=== PATIENT | male | born 1950 | race Caucasian/White ===

== ENCOUNTER 2017-09-27 00:19 | Inpatient (IN) | payer MEDICARE, SELFPAY ==
[2017-09-27] MEDS ORDERED: Atropine Sulfate 1 mg/10 ml Syringe ONE (00:35)
[2017-09-27 00:39] LABS: #Basophils 0.1 thou/uL (0.0-0.2); #Eosinphils 0.2 thou/uL (0.0-0.7); #Lymphocytes 1.7 thou/uL (1.20-3.40); #Monocytes 0.5 thou/uL (0.11-0.59); #Neutrophils 6.6 thou/uL (1.40-6.50); %Basophils 0.7 % (0.0-1.0); %Eosinophils 1.8 % (0.0-10.0); %Lymphocytes 18.5 % (21.0-51.0); %Neutrophils 72.9 % (42.0-75.0); Hemoglobin 13.9 g/dL (14.0-18.0); Mean Corpuscular HGB CONC 33.6 g/dL (32.0-36.0); Mean Corpuscular Hemoglobin 33.4 pg (27.0-31.0); Mean Corpuscular Volume 99.5 fl (80.0-94.0); Mean Platelet Volume 6.7 fL (7.4-10.4); Platelet Count 255 thou/uL (130-400); RBC Distribution Width 11.7 % (11.5-14.5); Red Blood Cell (RBC) Count 4.17 mill/uL (4.70-6.10); White Blood Cell (WBC) Count 9.1 thou/uL (4.8-10.8)
[2017-09-27 00:41] LABS: INR-International Normal Ratio 1.1; PTT 29.1 SEC (22.9-36.1); Prothrombin Time 14.8 SEC (12.0-14.7)
[2017-09-27 00:54] LABS: ALT (SGPT) 23 U/L (8-55); AST (SGOT) 33 U/L (5-34); Albumin 4.4 g/dL (3.4-4.8); Alkaline Phosphatase 66 U/L (40-150); Anion Gap 14 mmol/L (10-20); BUN (Urea Nitrogen) 20 mg/dL (8.4-25.7); Bilirubin, Total 0.6 mg/dL (0.2-1.2); CK (CPK) 523 U/L (30-200); Calc. Creatinine Clearance 0 mL/min (70-130); Calcium 10.3 mg/dL (7.8-10.44); Carbon Dioxide 25 mmol/L (23-31); Chloride 101 mmol/L (98-107); Estimated GFR-MDRD Greater than 90; Globulin 2.8 g/dL (2.4-3.5); Glucose 118 mg/dL (80-115); Lipase 26 U/L (8-78); Protein, Total 7.2 g/dL (5.8-8.1); Sodium 136 mmol/L (136-145)
[2017-09-27 00:57] LABS: Troponin I Less than 0.010 ng/mL (< 0.028)
[2017-09-27 01:03] LABS: CKMB 11.8 ng/mL (0-6.6)
[2017-09-27] MEDS ORDERED: Lidocaine 2% Jelly 5 ML TUBE ONE (01:12)
[2017-09-27] MEDS ORDERED: Benzocaine 20% Spray 60 ML CAN ONE (01:12)
[2017-09-27] MEDS ORDERED: Oxymetazoline HCl 0.05% ( 15 ML ) ONE (01:12)
[2017-09-27] MEDS ORDERED: Lorazepam 2 MG/ML VIAL ONE (02:25)
[2017-09-27] MEDS: Sodium Chloride 0.9% 1,000 ML IV SCH ×2 (04:36→10:42)
[2017-09-27 07:04] VITALS: BMI 18.7
[2017-09-27 09:49] LABS: #Lymphocytes 0.8 thou/uL (1.20-3.40); #Monocytes 0.6 thou/uL (0.11-0.59); #Neutrophils 8.4 thou/uL (1.40-6.50); %Basophils 0.3 % (0.0-1.0); %Eosinophils 0.2 % (0.0-10.0); %Monocytes 5.9 % (0.0-10.0); %Neutrophils 85.5 % (42.0-75.0); Hemoglobin 14.3 g/dL (14.0-18.0); Mean Corpuscular HGB CONC 33.4 g/dL (32.0-36.0); Mean Corpuscular Hemoglobin 33.3 pg (27.0-31.0); Mean Corpuscular Volume 99.5 fl (80.0-94.0); Mean Platelet Volume 6.7 fL (7.4-10.4); Platelet Count 264 thou/uL (130-400); RBC Distribution Width 11.5 % (11.5-14.5); Red Blood Cell (RBC) Count 4.31 mill/uL (4.70-6.10); White Blood Cell (WBC) Count 9.8 thou/uL (4.8-10.8)
--- NOTE | 2017-09-27 09:54 | RAD ---
ABDOMEN 1 VIEW: Date: 09/27/17 HISTORY: Evaluate for NG tube placement. COMPARISON: Exam from 2013. FINDINGS: The enteric tube tip is at the gastric body. The side port is just beyond the GE junction. No pneumot horax. No focal air space consolidation. IMPRESSION: Satisfactory position of enteric tube. POS: [facility]
[2017-09-27 10:09] LABS: BUN (Urea Nitrogen) 14 mg/dL (8.4-25.7); Calc. Creatinine Clearance 101 mL/min (70-130); Calcium 9.4 mg/dL (7.8-10.44); Carbon Dioxide 23 mmol/L (23-31); Estimated GFR-MDRD Greater than 90; Glucose 112 mg/dL (80-115)
[2017-09-27 10:19] LABS: Anion Gap 13 mmol/L (10-20); Chloride 105 mmol/L (98-107); Potassium 3.5 mmol/L (3.5-5.1); Sodium 137 mmol/L (136-145)
--- NOTE | 2017-09-27 12:18 | CT ---
PRELIMINARY REPORT/[facility]/EMERGENTY AFTER-HOURS PROCEDURE CT Abdomen And Pelvis With Intravenous Contrast EXAM DATE/TIME: 09/27/2017 12:43 AM CLINICAL HISTORY: 67 years old, male; Pain; Abdominal pain; Generalized; Patient HX: [id number] presents to ed via ems C/O hyp otension of 70/30. Ems reports patient has been bradycardic in the 30's and has been complaining of a bdominal pain. Patient denies abdominal pain at this time. Ems reports patient's BP is 122/75 on arrival to ed. Ems was initially called by patient for dizziness. He was given 500 of fl uid. TECHNIQUE: Axial computed tomography images of the abdomen and pelvis with intravenous contrast. Coronal and sag ittal reformatted images were created and reviewed. CONTRAST: 100 ml of [id number] administered intravenously. COMPARISON: No relevant prior studies available. FINDINGS: Lower thorax: Several tiny nodules within the periphery of the anterior right lower lobe (series 2, i mages 2-5), possibly minimal bronchopneumonia versus related to prior granulomatous disease. ABDOMEN: Liver: Normal. No mass. Gallbladder and bile ducts: Normal. No calcified stones. No ductal dilation. Pancreas: Normal. No ductal dilation. Spleen: Normal. No splenomegaly. Adrenals: Normal. No mass. Kidneys and ureters: Normal. No hydronephrosis. Stomach and bowel: Moderate gas and fluid distention of the stomach, as well as multiple loops, gas a nd fluid-filled proximal and mid small bowel, with apparent transition to normal caliber small bowel within the lower abdomen, compatible with small bowel obstruction. Appendix: No findings to suggest acute appendicitis. PELVIS: Bladder: Unremarkable as visualized. Reproductive: Unremarkable as visualized. ABDOMEN and PELVIS: Intraperitoneal space: Normal. No free air. No significant fluid collection. Bones/joints: No acute fracture. No dislocation. Soft tissues: Unremarkable. Vasculature: Normal. No abdominal aortic aneurysm. Lymph nodes: Normal. No enlarged lymph nodes. IMPRESSION: Moderate gas and fluid distention of the stomach, as well as multiple loops, gas and fluid-filled pro ximal and mid small bowel, with apparent transition to normal caliber small bowel within the lower ab domen, compatible with small bowel obstruction. Thank you for allowing us to participate in the care of your patient. Dictated and Authenticated by: Guillermo Schreiber MD 09/27/2017 1:30 AM Central Time ([place] & [place]) FINAL REPORT CT ABDOMEN AND PELVIS WITH CONTRAST: Date: 09/27/17 HISTORY: Hypotension, abdominal pain. COMPARISON: CT abdomen and pelvis dated 11/30/12. FINDINGS/IMPRESSION: Findings and impression are concordant with preliminary report by Gera. There is small volume free fluid in the pelvis. POS: [facility]
[2017-09-27] MEDS ORDERED: hydrALAZINE 20 MG/ML VIAL SLOW IVP PRN (13:59)
[2017-09-27] MEDS ORDERED: Dextrose 5% in Water 1,000 ML IV PRN (13:59)
[2017-09-27] MEDS ORDERED: Ondansetron HCl/PF 4 MG/2 ML Vial IVP PRN (13:59)
[2017-09-27] MEDS ORDERED: Dextrose 50% Abboject 50 ML SYRINGE SLOW IVP PRN (13:59)
[2017-09-27] MEDS ORDERED: Acetaminophen 1,000 MG in Premix Bag 1 BAG IVPB PRN (14:02)
[2017-09-27] MEDS ORDERED: Ketorolac Tromethamine 30 MG/ML VIAL IVP PRN (14:02)
[2017-09-27] MEDS ORDERED: ISOVUE-370 76%-LOCM 1 ML ONE (14:12)
[2017-09-27] MEDS ORDERED: MD-Gastroview 120 ML BOT ONE (14:18)
--- NOTE | 2017-09-27 14:31 | RAD ---
ABDOMEN 2 VIEWS WITH 1 VIEW CHEST: Date: 09/27/17 HISTORY: Small bowel obstruction. COMPARISON: Abdomen radiograph same date. FINDINGS: Enteric tube is in place with side port just beyond the GE junction, tip in gastric body. There are m ultiple air fluid levels within the abdomen. Contrast is seen within the urinary bladder. IMPRESSION: 1. Good position of enteric tube. 2. Low grade small bowel obstruction. POS: [facility]
[2017-09-27] MEDS: Lactated Ringer's 1,000 ML IV SCH (14:51)
[2017-09-27] MEDS ORDERED: Ondansetron ODT 4 MG TAB PO PRN (15:16)
[2017-09-27] MEDS ORDERED: Ondansetron ORAL SOLN. 4 MG/5 ML UDCUP PO PRN ×2 (18:51)
[2017-09-27] MEDS ORDERED: Ondansetron ODT 8 MG TAB PO PRN (18:51)
[2017-09-27] MEDS ORDERED: Ondansetron ODT 8 MG TAB SL PRN (18:51)
--- NOTE | 2017-09-27 19:55 | HP ---
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 Having experienced thi s before, he was concerned that he was having of the bowel obstruction. The patient reports having a normal bowel movement yesterday prior to presenting to the emergency room. In the emergency room, radha oglesby underwent a CAT scan of the abdomen and pelvis, suggesting some mild to moderate small-bowel disten tion with a possible transition zone. CK-MB was elevated. He was not acidotic. The patient was sli ghtly hypotensive given intravenous fluids and his blood pressure rapidly returned to normal. He und erwent a CAT scan of the abdomen and pelvis with the above noted findings. He was admitted to the [facility], NG tube placed and has had only 25 mL out of his gastric tube since admission. The patient s tates since being in the hospital this morning, he has passed some flatus, he is no longer have any a bdominal pain. His basic metabolic profile was normal and his CBC is normal. He reports never havin g had a colonoscopy. Three-view of abdominal x-ray this morning reveals a few air fluid levels. NG tube in proper positio n. Gas in his right colon, transverse colon, and descending colon, and rectum. He does have a few a ir fluid levels small bowel. What is not commented on his CAT scan and what is also seen on his plai n abdominal x-rays as a tremendous amount of stool. ALLERGIES: PENICILLIN. TOBACCO: None. ALCOHOL: None. HOME MEDICATIONS: None. He does take fiber. He does consume a lot of fruits and vegetables. He exercises three days a week. PAST SURGICAL HISTORY: The patient had a ruptured appendix and laparotomy, partial bowel resection i n 1979. On 06/02/2008, patient had a laparotomy, adhesiolysis due to a bowel obstruction with volvul us identified. In 2012, I performed a laparotomy, adhesiolysis of his terminal ileum. The patient d enies having any obstructive symptoms since 2012. He has been well since that time. PAST MEDICAL HISTORY: Noncontributory. REVIEW OF SYSTEMS: Ten point noncontributory. PHYSICAL EXAMINATION: VITAL SIGNS: 138 pounds, 18 BMI, 97.7, 59, 16, and 108/68. HEENT: Unremarkable. LUNGS: Clear to auscultation. CARDIAC: Regular rate and rhythm without murmur or gallop. ABDOMEN: Soft, nontympanitic, slightly protuberant, although he states this is baseline abdominal co ndition. He is nontympanitic. He is nondistended. There is just over 100 mL of dark colored NG to operate in his suction cannister. EXTREMITIES: Unremarkable. LABORATORY DATA: As noted above. ASSESSMENT AND PLAN: Abdominal pain with constipation despite adequate exercise, hydration, and frui t and vegetable consumption. He has never had a colonoscopy. We would recommend a small bowel follo wthrough at this point. We will order that. We will made further recommendations, pending this resu lt.
--- NOTE | 2017-09-27 20:26 | RAD ---
SMALL BOWEL STUDY: 09/27/17 HISTORY: Small bowel obstruction. COMPARISON: CT abdomen and pelvis on 09/27/17. FINDINGS: Emergency Registrar image demonstrates nasogastric tube in place with tip overlying the expected location of the yara dy of the stomach. Bowel gas pattern on the quality tester view is also nonspecific. There is contrast seen wi thin the urinary bladder related to recent contrasted study. The small bowel study demonstrates mildl y prominent loops of small bowel, but no significantly dilated loops of small bowel are appreciated. There is contrast seen within the colon on the five hour image. There is persistent contrast in the stomach on a delayed five hour image. IMPRESSION: Mildly prominent loops of small bowel, but the significantly dilated loops of small bowel seen on the recent CT scan exam are not appreciated on this study. Contrast is seen in the colon on the four clau r image. Followup view of the abdomen on 09/28/17 may be helpful for further evaluation. POS: [facility]
[2017-09-27] MEDS ORDERED: Pantoprazole 40 MG VIAL IVP SCH (21:00)
[2017-09-27] MEDS ORDERED: Enoxaparin Sodium 40 MG/0.4 ML SYRINGE SC SCH (21:00)
[2017-09-27] MEDS ORDERED: Famotidine/PF 20 mg/2ml Vial SLOW IVP SCH (21:00)
[2017-09-28] MEDS: Lactated Ringer's 1,000 ML IV SCH ×3 (00:42→09:42)
[2017-09-28 05:58] LABS: #Basophils 0.1 thou/uL (0.0-0.2); #Eosinphils 0.3 thou/uL (0.0-0.7); #Lymphocytes 1.6 thou/uL (1.20-3.40); #Monocytes 0.6 thou/uL (0.11-0.59); #Neutrophils 4.9 thou/uL (1.40-6.50); %Basophils 0.9 % (0.0-1.0); %Eosinophils 3.6 % (0.0-10.0); %Lymphocytes 21.5 % (21.0-51.0); %Monocytes 8.6 % (0.0-10.0); %Neutrophils 65.4 % (42.0-75.0); Mean Corpuscular HGB CONC 33.9 g/dL (32.0-36.0); Mean Corpuscular Hemoglobin 33.8 pg (27.0-31.0); Mean Corpuscular Volume 99.5 fl (80.0-94.0); Mean Platelet Volume 6.7 fL (7.4-10.4); Platelet Count 227 thou/uL (130-400); RBC Distribution Width 11.7 % (11.5-14.5); Red Blood Cell (RBC) Count 3.84 mill/uL (4.70-6.10); White Blood Cell (WBC) Count 7.4 thou/uL (4.8-10.8)
[2017-09-28 06:11] LABS: Anion Gap 8 mmol/L (10-20); BUN (Urea Nitrogen) 10 mg/dL (8.4-25.7); Calc. Creatinine Clearance 100 mL/min (70-130); Calcium 8.6 mg/dL (7.8-10.44); Carbon Dioxide 26 mmol/L (23-31); Chloride 113 mmol/L (98-107); Estimated GFR-MDRD Greater than 90; Glucose 96 mg/dL (80-115); Potassium 3.1 mmol/L (3.5-5.1); Sodium 144 mmol/L (136-145)
--- NOTE | 2017-09-28 13:04 | RAD ---
UPRIGHT AND SUPINE FRONTAL IMAGING OF THE ABDOMEN AND PELVIS: Date: 09/28/17 COMPARISON: Small bowel follow-through dated 09/27/17. HISTORY: Small bowel obstruction. FINDINGS: The upright imaging demonstrates no free intraperitoneal air. There is contrast media seen throughout the colon extending to the level of the rectum. No gas-filled dilated small bowel seen. IMPRESSION: KUB demonstrates no free intraperitoneal air with contrast media extending to the level of the rectum . POS: [facility]
[2017-09-28 16:36] VITALS: BP 111/67; TEMP 97.3
--- NOTE | 2017-09-28 16:42 | PRG ---
DATE OF PROGRESS: 09/28/2017 SUBJECTIVE: Small bowel follow-through normal. The patient is tolerating his diet. OBJECTIVE: VITAL SIGNS: Stable, afebrile, no complaints. LUNGS: Clear to auscultation. CARDIAC: Regular rate and rhythm without murmur or gallop. ABDOMEN: Soft, nontender. EXTREMITIES: Unremarkable. ASSESSMENT: Resolved severe constipation or partial bowel obstruction. Small bowel follow-through n ormal. PLAN: Discharge home. Follow up as needed, MiraLax daily.
--- NOTE | 2017-09-28 22:03 | DIS ---
DATE OF ADMISSION: 09/27/2017 DATE OF DISCHARGE: 09/28/2017 DISCHARGE DIAGNOSIS: Bowel obstruction. POSTOPERATIVE DIAGNOSES: Bowel obstruction, resolved and normal small bowel follow-through. HISTORY: A 67-year-old male patient well known to me. He has had a ruptured appendectomy and had an operation for that and postoperatively in 2012 had a laparotomy for bowel obstruction that required recent small bowel resection without obstructive symptoms since that time. In 2007, I had performed a laparotomy for bowel obstruction finding of volvulus. Patient now presents to the emergency room w ith central abdominal pain, he suspects recurrent bowel obstruction. CAT scan revealed changes possi vernell suggestive of bowel obstruction. NG tube was placed. He had thickened gastric contents out. He did have significant constipation on his CAT scan, not mentioned on the report, but appreciated on p ersonal review. A small bowel follow-through performed and this revealed trans end of the colon. Th ere was delayed gastric emptying, but it did move into the colon rapidly after that. He tolerated hi s diet. After NG tube was removed, he is being discharged home at this time with MiraLax daily. On admission, his blood pressure was low, but it was felt due to dehydration. He was not acidotic and h is white count was normal and his vital signs are normal. Patient has never had a colonoscopy. Woul d recommend, he do have a colonoscopy in the future.
[2017-09-29] MEDS ORDERED: Polyethylene Glycol 3350 17 GM Packet PO SCH (09:00)
== END 2017-09-28 16:35 | disposition home or self-care (01) | DRG 390 ==
LOC: ERS 00:19 → SURG B 01:40
PROVIDERS: ADMIT Specialist; ATTEND Specialist
DX: K56.600 Partial intestinal obstruction, unspecified as to cause (principal); E86.0 Dehydration; K59.00 Constipation, unspecified; Z88.0 Allergy status to penicillin
CPT/HCPCS: 36415; 74018; 74019; 74022; 74177; 74250; 80048; 80053; 82550; 82553; 83605; 83690; 84484; 85025; 85610; 85730; 93005; 96360; 96374; 96375; 99292; A4216; C9113; J0461; J1650; J2060; Q0162

== ENCOUNTER 2019-02-17 23:59 | Emergency (ER) | payer MEDICARE ==
[2019-02-18 00:19] LABS: #Basophils 0.1 thou/uL (0.0-0.2); #Eosinphils 0.6 thou/uL (0.0-0.7); #Lymphocytes 2.5 thou/uL (1.20-3.40); #Monocytes 0.6 thou/uL (0.11-0.59); #Neutrophils 2.5 thou/uL (1.40-6.50); %Basophils 1.6 % (0.0-1.0); %Eosinophils 9.3 % (0.0-10.0); %Lymphocytes 40.3 % (21.0-51.0); %Monocytes 9.2 % (0.0-10.0); %Neutrophils 39.6 % (42.0-75.0); Hemoglobin 13.3 g/dL (14.0-18.0); Mean Corpuscular HGB CONC 34.3 g/dL (32.0-36.0); Mean Corpuscular Hemoglobin 33.7 pg (27.0-31.0); Mean Corpuscular Volume 98.2 fL (78.0-98.0); Platelet Count 236 thou/uL (130-400); RBC Distribution Width 11.8 % (11.5-14.5); Red Blood Cell (RBC) Count 3.95 mill/uL (4.70-6.10); White Blood Cell (WBC) Count 6.2 thou/uL (4.8-10.8)
[2019-02-18 00:44] LABS: ALT (SGPT) 25 U/L (8-55); AST (SGOT) 35 U/L (5-34); Albumin 4.2 g/dL (3.4-4.8); Alkaline Phosphatase 66 U/L (40-150); Anion Gap 12 mmol/L (10-20); BUN (Urea Nitrogen) 21 mg/dL (8.4-25.7); Bilirubin, Total 0.3 mg/dL (0.2-1.2); Calc. Creatinine Clearance 0 mL/min (70-130); Calcium 9.3 mg/dL (7.8-10.44); Carbon Dioxide 25 mmol/L (23-31); Chloride 104 mmol/L (98-107); Estimated GFR-MDRD Greater than 90; Globulin 2.4 g/dL (2.4-3.5); Glucose 93 mg/dL (80-115); Potassium 3.3 mmol/L (3.5-5.1); Protein, Total 6.6 g/dL (5.8-8.1); Sodium 138 mmol/L (136-145)
--- NOTE | 2019-02-18 07:33 | CT ---
PRELIMINARY REPORT/[facility]/AFTER HOURS PROCEDURE EXAM: CT Head Without Contrast EXAM DATE/TIME: 02/18/2019 1:30 AM CLINICAL HISTORY: 68 years old, male; Patient HX: Er 3. Dizziness; This is a 68 yo male with a pmh of bph who presents to the ED with a cc of losing his balance and nausea TECHNIQUE: Imaging protocol: Computed tomography of the head without contrast. COMPARISON: No relevant prior studies available. FINDINGS: Brain: No hemorrhage. Unremarkable white matter. No mass effect. Ventricles: There is proportionate enlargement of the ventricles relative to the sulci. Bones/joints: Unremarkable. No acute fracture. Sinuses: No fluid levels. Mastoid air cells: Visualized mastoid air cells are well aerated. Soft tissues: Unremarkable. IMPRESSION: No acute intracranial abnormality. Thank you for allowing us to participate in the care of your patient. Dictated and Authenticated by: Karon Bonds MD 02/18/2019 1:51 AM Central Time ([place] & [place]) FINAL REPORT CT BRAIN WITHOUT CONTRAST: HISTORY: Dizziness. COMPARISON: None. FINDINGS: No acute hemorrhage or infarct. No midline shift or mass effect. IMPRESSION: No acute intracranial abnormality. CODE QA Transcribed Date/Time: 02/18/2019 8:55 AM
--- NOTE | 2019-02-20 15:08 | EKG ---
Test Reason : Blood Pressure : / mmHG Vent. Rate : 057 BPM Atrial Rate : 057 BPM P-R Int : 210 ms QRS Dur : 110 ms QT Int : 430 ms P-R-T Axes : 074 088 051 degrees QTc Int : 418 ms Sinus bradycardia with 1st degree A-V block Otherwise normal ECG Confirmed by KIZZY JOVEL DO ([id number]), legal editor CHINA WICK ([id number]) on 02/20/2019 3:08:13 PM Referred By: Confirmed By:KIZZY JOVEL DO
== END 2019-02-18 03:05 | disposition home or self-care (01) ==
LOC: ERS 23:59
DX: H81.13 Benign paroxysmal vertigo, bilateral (principal)
CPT/HCPCS: 36415; 70450; 80053; 84484; 85025; 93005; 96360; 96361

== ENCOUNTER 2021-02-06 | Emergency (ER) | payer MEDICARE | END 2021-02-06 14:33 | disposition left against medical advice (07) ==

== ENCOUNTER 2021-02-12 06:05 | Emergency (ER) | payer MEDICARE ==
[2021-02-12 08:01] LABS: #Monocytes 0.3 thou/uL (0.11-0.59); #Neutrophils 1.8 thou/uL (1.40-6.50); %Basophils 0.8 % (0.0-1.0); %Eosinophils 1.2 % (0.0-10.0); %Lymphocytes 31.4 % (21.0-51.0); %Monocytes 10.1 % (0.0-10.0); %Neutrophils 56.5 % (42.0-75.0); Hemoglobin 13.1 g/dL (14.0-18.0); Mean Corpuscular HGB CONC 32.8 g/dL (32.0-36.0); Mean Corpuscular Hemoglobin 32.5 pg (27.0-31.0); Mean Corpuscular Volume 99.1 fL (78.0-98.0); Mean Platelet Volume 8.1 fL (7.4-10.4); Platelet Count 180 thou/uL (130-400); RBC Distribution Width 11.8 % (11.5-14.5); Red Blood Cell (RBC) Count 4.04 mill/uL (4.70-6.10); White Blood Cell (WBC) Count 3.3 thou/uL (4.8-10.8)
[2021-02-12 08:10] LABS: ALT (SGPT) 24 U/L (8-55); AST (SGOT) 42 U/L (5-34); Albumin 3.4 g/dL (3.4-4.8); Alkaline Phosphatase 50 U/L (40-110); Anion Gap 12 mmol/L (10-20); BUN (Urea Nitrogen) 15 mg/dL (8.4-25.7); Bilirubin, Total 0.4 mg/dL (0.2-1.2); Calc. Creatinine Clearance 0 mL/min (70-130); Calcium 8.2 mg/dL (7.8-10.44); Carbon Dioxide 26 mmol/L (23-31); Chloride 102 mmol/L (98-107); Globulin 2.3 g/dL (2.4-3.5); Glucose 100 mg/dL (83-110); Protein, Total 5.7 g/dL (5.8-8.1); Sodium 136 mmol/L (136-145)
[2021-02-12] MEDS ORDERED: Cefepime 1 GM VIAL ONE (09:27)
[2021-02-12] MEDS ORDERED: Iopamidol-370 76% 500 ML 1 ML ONE (13:22)
== END 2021-02-12 11:25 | disposition left against medical advice (07) ==
LOC: ERS 06:05
DX: U07.1 COVID-19 (principal); R00.1 Bradycardia, unspecified; I95.9 Hypotension, unspecified; R91.8 Other nonspecific abnormal finding of lung field
CPT/HCPCS: 36415; 71045; 71275; 80053; 83605; 84484; 85025; 85379; 87040; 93005; 96365; 96366; J0692; Q9967